=== PATIENT | female | born 1975 | race Caucasian/White ===

== ENCOUNTER 2016-12-02 11:42 | Emergency (ER) | payer SELFPAY, MEDICAID ==
[2016-12-02] MEDS ORDERED: ZANAFLEX4 M3 PO (11:48)
[2016-12-02] MEDS ORDERED: METOPROLOL TART25 M1 PO (11:48)
[2016-12-02] MEDS ORDERED: PEPCID20 M1 PO (11:49)
[2016-12-02] MEDS ORDERED: CYCLOBENZAPRINE5 M1 PO (14:25)
[2017-04-14] MEDS ORDERED: INVEGA SUS156 MG/11 IM (11:25)
[2017-04-14] MEDS ORDERED: BUSPIRONE HCL10 M2 PO (11:26)
[2017-04-14] MEDS ORDERED: TYLENOL325 M2 PO (12:37)
[2017-04-14] MEDS ORDERED: IBUPROFEN200 M2 PO (12:38)
[2017-04-15] MEDS ORDERED: LIPITOR20 M1 PO (09:25)
[2017-04-15] MEDS ORDERED: TOPROL XL25 M1 PO (09:27)
[2017-04-15] MEDS ORDERED: TYLENOL325 M2 PO (09:36)
[2017-04-15] MEDS ORDERED: ASPIR 8181 M1 PO (09:37)
== END 2016-12-02 14:40 ==
LOC: EDMED 11:42
DX: M54.5 Low back pain (principal); Z88.0 Allergy status to penicillin; Z90.710 Acquired absence of both cervix and uterus; F17.200 Nicotine dependence, unspecified, uncomplicated
CPT/HCPCS: J1885; J3360